=== PATIENT | female | born 1960 | race Caucasian/White ===

== ENCOUNTER 2017-11-02 12:41 | Emergency (ER) | payer OTHER ==
[2017-11-02 13:02] VITALS: BMI 36.3
--- NOTE | 2017-11-02 13:47 | PDOC ---
History of Present Illness - General Chief Complaint: Cold Symptoms Stated Complaint: NAUSEA, BODY ACHES Time Seen by Provider: 11/02/17 13:39 History Source: Patient Exam Limitations: No Limitations - History of Present Illness Initial Comments: CHIEF COMPLAINT: HISTORY OF PRESENT ILLNESS: Vital signs on arrival are notable for pulse of 105 secondary to temp of 99.9. REVIEW OF SYSTEMS: GENERAL/CONSTITUTIONAL: Subjective fever/chills. No weakness. No weight change. HEAD, EYES, EARS, NOSE AND THROAT: No change in vision. No ear pain or discharge. No sore throat. CARDIOVASCULAR: No chest pain or shortness of breath. RESPIRATORY: No cough, wheezing, or hemoptysis. GASTROINTESTINAL: See history of present illness. GENITOURINARY: No dysuria, frequency, or change in urination. MUSCULOSKELETAL: No joint or muscle swelling or pain. No neck or back pain. SKIN: No rash or easy bruising. NEUROLOGIC: No headache, vertigo, loss of consciousness, or loss of sensation. PHYSICAL EXAM: GENERAL: The patient is awake, alert, and fully oriented, in no acute distress. HEAD: Normal with no signs of trauma. ENT: Pupils equal, round and reactive to light, extraocular movements intact, sclera anicteric, conjunctiva clear. Neck supple. LUNGS: Clear to auscultation bilaterally. Normal excursion. No respiratory distress or use of accessory muscles. CV: RRR, S1/S2, no MRG. Cap refill < 2 sec. ABDOMEN: Soft, non-distended, non-tender even to deep palpation, no hepatomegaly or splenomegaly, no masses. EXTREMITIES: Normal range of motion, no edema. NEUROLOGICAL: Normal speech, normal gait. CN II-XII grossly intact. PSYCH: Normal mood, normal affect. SKIN: Warm, dry, normal turgor, no rashes or lesions noted. Past History - Past Medical History Allergies/Adverse Reactions: Allergies Allergy/AdvReac Type Severity Reaction Status Date / Time ciprofloxacin [From Cipro] Allergy Verified 11/02/17 13:02 doxycycline Allergy Verified 11/02/17 13:03 - Suicide/Smoking/Psychosocial Hx Smoking History: Never smoked *Physical Exam - Vital Signs Last Vital Signs Temp Pulse Resp BP Pulse Ox 99.9 F H 105 H 20 115/68 99 11/02/17 12:59 11/02/17 12:59 11/02/17 12:59 11/02/17 12:59 11/02/17 12:59 Medical Decision Making - Medical Decision Making A/P:
[2017-11-02] MEDS ORDERED: ACETAMINOPHEN 325 MG TABLET (FP) PO ONE (14:07)
[2017-11-02] MEDS ORDERED: SODIUM CHLORIDE 1,000 ML IV STA (14:07)
[2017-11-02] MEDS ORDERED: ACETAMINOPHEN 325 MG TABLET (FP) ONE ×2 (14:08→14:31)
[2017-11-02 14:34] LABS: URINE APPEARANCE CLOUDY; URINE BILIRUBIN NEGATIVE (NEGATIVE); URINE BLOOD 2+ (NEGATIVE); URINE COLOR YELLOW; URINE GLUCOSE (UA) NEGATIVE (NEGATIVE); URINE KETONE NEGATIVE (NEGATIVE); URINE NITRITE NEGATIVE (NEGATIVE); URINE UROBILINOGEN NEGATIVE mg/dL (0.2-1.0)
--- NOTE | 2017-11-02 14:38 | PDOC ---
History of Present Illness - General Chief Complaint: Cold Symptoms Stated Complaint: NAUSEA, BODY ACHES Time Seen by Provider: 11/02/17 13:39 History Source: Patient - History of Present Illness Associated Symptoms: reports: chest pain/soreness, cough, headache, muscle aches. denies: earache, facial pain, nasal congestion, sore throat, wheezing Past History - Past Medical History Allergies/Adverse Reactions: Allergies Allergy/AdvReac Type Severity Reaction Status Date / Time ciprofloxacin [From Cipro] Allergy Verified 11/02/17 13:02 doxycycline Allergy Verified 11/02/17 13:03 Home Medications: Ambulatory Orders Cephalexin Monohydrate [Keflex -] 500 mg PO BID #14 capsule 11/02/17 Flurazepam HCl [[place] -] 15 mg PO HS 11/02/17 Folic Acid 1 mg PO ASDIR 11/02/17 Gabapentin 300 mg PO ASDIR 11/02/17 Gabapentin 800 mg PO ASDIR 11/02/17 Loratadine 10 mg PO ASDIR 11/02/17 Methotrexate Sodium [Methotrexate] 2.5 mg PO ASDIR 11/02/17 Metoprolol Succinate 25 mg PO ASDIR 11/02/17 Midodrine HCl [Proamatine -] 2.5 mg PO ASDIR 11/02/17 Paroxetine HCl 20 mg PO ASDIR 11/02/17 Ranitidine HCl 75 mg PO ASDIR 11/02/17 - Suicide/Smoking/Psychosocial Hx Smoking History: Never smoked Review of Systems - Review of Systems Constitutional: Yes: Fever, Malaise Respiratory: Yes: Cough, Shortness of Breath. No: Wheezing Cardiac (ROS): Yes: Chest Pain. No: Lightheadedness ABD/GI: Yes: Nausea, Vomiting. No: Diarrhea, Abdominal cramping : No: Dysuria *Physical Exam - Vital Signs Last Vital Signs Temp Pulse Resp BP Pulse Ox 99.9 F H 105 H 20 115/68 99 11/02/17 12:59 11/02/17 12:59 11/02/17 12:59 11/02/17 12:59 11/02/17 12:59 - Physical Exam General Appearance: Yes: Appropriately Dressed. No: Apparent Distress HEENT: positive: Normal Voice Neck: positive: Supple. negative: Lymphadenopathy (R), Lymphadenopathy (L) Respiratory/Chest: positive: Lungs Clear, Normal Breath Sounds. negative: Respiratory Distress Cardiovascular: positive: S1, S2, Tachycardia Gastrointestinal/Abdominal: positive: Soft. negative: Tender Integumentary: positive: Dry, Warm Neurologic: positive: Fully Oriented, Alert, Normal Mood/Affect ED Treatment Course - LABORATORY CBC & Chemistry Diagram: 11/02/17 14:30 11/02/17 14:30 Medical Decision Making - Medical Decision Making 11/02/17 14:35 57-year-old female, history of hypertension, RA on weekly prednisone, fibromyalgia, anxiety, depression, here with generalized body aches with dry cough, pleuritic chest pain, nausea and vomiting 3 days. Denies abdominal pain , change in bowel movements, shortness of breath, fever or chills. No known sick contacts See exam Viral syndrome R/o flu -tylenol -IVF -labs -CXR -reassess -anticipate discharge 11/02/17 14:37 11/02/17 16:46 Chest x-ray and labs unremarkable. UA with leuk esterase, blood, >100 wbc and many bacteria. Patient asymptomatic but will treat. No evidence of pyelo at this time. Repeat vitals improved and patient discharged with supportive treatment *DC/Admit/Observation/Transfer Diagnosis at time of Disposition: Viral syndrome UTI (urinary tract infection) Qualifiers: Urinary tract infection type: acute cystitis Hematuria presence: without hematuria Qualified Code(s): N30.00 - Acute cystitis without hematuria - Discharge Dispostion Condition at time of disposition: Improved - Prescriptions Prescriptions: Cephalexin Monohydrate [Keflex -] 500 mg PO BID #14 capsule - Referrals - Patient Instructions Printed Discharge Instructions: DI for Viral Syndrome Additional Instructions: Anat laboratorios, prueba de gripe y radiografa de trax fueron todos negativos. Freeman orina, sin embargo, mostr yong infeccin y comenzamos con antibiticos. Por favor tome segn lo prescrito Usted tiene yong enfermedad viral inespecfica. Descanse, tome muchos lquidos y tome Tylenol segn sea necesario para la fiebre y / o russel corporales. Si los sntomas empeoran, regrese a ED Halima un seguimiento con freeman PMD la prxima semana - Post Discharge Activity
[2017-11-02 14:42] LABS: BASO % 0.9 % (0-2.0); HEMATOCRIT 39.6 % (32.4-45.2); HEMOGLOBIN 12.6 GM/dL (10.7-15.3); LYMPH % 14.6 % (8-40); MCHC 31.8 g/dl (32.0-36.0); MONO % 11.3 % (3.8-10.2); NEUT % 73.2 % (42.8-82.8); PLATELET COUNT 329 K/MM3 (134-434); RDW 15.2 % (11.6-15.6); WHITE BLOOD COUNT 10.3 K/mm3 (4.0-10.0)
[2017-11-02 14:48] LABS: URINE LEUK ESTERASE 3+ (NEGATIVE); URINE PROTEIN 1+ (NEGATIVE)
[2017-11-02 15:06] LABS: ALBUMIN 3.3 g/dl (3.4-5.0); ANION GAP 8 (8-16); BLOOD UREA NITROGEN 10 mg/dL (7-18); CALCIUM 8.1 mg/dL (8.5-10.1); CHLORIDE 97 mmol/L (98-107); CO2 29 mmol/L (21-32); GLUCOSE,RANDOM 105 mg/dL (74-106); POTASSIUM 4.4 mmol/L (3.5-5.1); SGOT/AST 14 U/L (15-37); SGPT/ALT 26 U/L (12-78); SODIUM 134 mmol/L (136-145)
[2017-11-02 15:07] LABS: ALK PHOS 77 U/L (45-117); BILIRUBIN,TOTAL 0.3 mg/dL (0.2-1.0); TOT PROT 7.5 g/dl (6.4-8.2)
[2017-11-02 15:10] LABS: LIPASE 218 U/L (73-393)
[2017-11-02 15:29] LABS: EPI CELLS MANY /HPF (FEW); URINE BACTERIA MANY /hpf (NONE SEEN); URINE MUCUS MANY
[2017-11-02 16:36] VITALS: TEMP 98.1
[2017-11-02 17:31] VITALS: BP 108/70; PULSE 85
== END 2017-11-02 17:30 | disposition home or self-care (01) ==
LOC: JERFT 12:41 → JER 12:41
PROC: 3E0337Z Introduction of Electrolytic and Water Balance Substance into Peripheral Vein, Percutaneous Approach (ICD-10-PCS; principal; 2017-11-02)
DX: N30.00 Acute cystitis without hematuria (principal); B34.9 Viral infection, unspecified; M79.7 Fibromyalgia; F41.8 Other specified anxiety disorders
CPT/HCPCS: 36415; 71046-TC; 80053; 81003; 81015; 83690; 85025; 87086; 87804; 99283-25